=== PATIENT | male | born 1995 | race Caucasian/White ===

== ENCOUNTER 2018-05-02 16:12 | Emergency (ER) | payer BC ==
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
[2018-05-02 16:29] VITALS: BP 115/67; PULSE 57; TEMP 98.1; BMI 21.4
[2018-05-02] MEDS ORDERED: IBUPROFEN 600 MG TABLET (FP) PO ONE ×2 (17:06→17:07)
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
== END 2018-05-02 17:23 | disposition home or self-care (01) ==
LOC: JERFT 16:12
DX: Z04.1 Encounter for examination and observation following transport accident (principal); V43.52XA Car driver injured in collision with other type car in traffic accident, initial encounter; Y93.89 Activity, other specified; Y92.412 Parkway as the place of occurrence of the external cause
CPT/HCPCS: 99281-25

== ENCOUNTER 2023-02-17 14:56 | Emergency (ER) | payer BC ==
[2023-02-17 15:19] VITALS: BMI 22.9
[2023-02-17] MEDS ORDERED: KETOROLAC TROMETHAMINE 30 MG/1 ML VIAL IM ONE (16:01)
[2023-02-17] MEDS ORDERED: KETOROLAC TROMETHAMINE 30 MG/1 ML VIAL ONE (16:10)
[2023-02-17] MEDS ORDERED: ACETAMINOPHEN 1000 MG/100 ML BAG IVPB ONE (17:30)
[2023-02-17] MEDS ORDERED: ACETAMINOPHEN INJECTION 100 ML IVPB ONE (17:31)
[2023-02-17 18:07] LABS: BASO % 0.1 % (0-2.0); HEMATOCRIT 40.5 % (35.4-49); HEMOGLOBIN 13.8 GM/dL (11.7-16.9); LYMPH % 20.3 % (8-40); MCH 29.9 pg (25.7-33.7); MCHC 34.1 g/dl (32.0-35.9); MEAN CELL VOLUME 87.8 fl (80-96); MEAN PLT VOLUME 9.2 fl (7.5-11.1); MONO % 7.8 % (3.8-10.2); NEUT % 71.8 % (42.8-82.8); PLATELET COUNT 201 10^3/uL (134-434); RBC 4.62 M/mm3 (4.00-5.60); RDW 12.6 % (11.9-15.9); WHITE BLOOD COUNT 9.7 K/mm3 (4.0-10.0)
[2023-02-17 18:23] LABS: CALCIUM 8.9 mg/dL (8.5-10.1)
[2023-02-17 18:24] LABS: ALBUMIN 3.9 g/dl (3.4-5.0); BLOOD UREA NITROGEN 12.1 mg/dL (7-18)
[2023-02-17 18:27] LABS: CREATININE 0.9 mg/dL (0.55-1.3)
[2023-02-17 18:28] LABS: BILIRUBIN,TOTAL 0.4 mg/dL (0.2-1)
[2023-02-17 18:31] VITALS: BP 133/74; PULSE 68; RESP 17; TEMP 98.5
== END 2023-02-17 19:02 | disposition home or self-care (01) ==
LOC: JER 14:56
PROC: 2W3QX1Z Immobilization of Right Lower Leg using Splint (ICD-10-PCS; principal; 2023-02-17)
PROC: 3E033NZ Introduction of Analgesics, Hypnotics, Sedatives into Peripheral Vein, Percutaneous Approach (ICD-10-PCS; 2023-02-17)
PROC: 3E0233Z Introduction of Anti-inflammatory into Muscle, Percutaneous Approach (ICD-10-PCS; 2023-02-17)
DX: S82.201A Unspecified fracture of shaft of right tibia, initial encounter for closed fracture (principal); R55 Syncope and collapse; Y99.9 Unspecified external cause status
CPT/HCPCS: 36415; 71046-TC-FY; 73610-TC-RT-FY; 73630-TC-RT-FY; 80053; 84439; 84443; 84484; 85025; 93005; 93010; 99285-25

== ENCOUNTER 2023-02-27 04:31 | Day surgery (SDC) | payer BC ==
[2023-02-22 17:08] VITALS: BMI 22.9
[2023-02-27] MEDS ORDERED: MIDAZOLAM HCL 2 MG/2 ML SINGLE DOSE VIAL ONE (12:58)
[2023-02-27] MEDS ORDERED: BUPIVACAINE HCL/PF 0.5% (5MG/ML) 10 ML VIAL ONE (12:59)
[2023-02-27] MEDS ORDERED: DEXAMETHASONE SOD PHOSPHATE 10 MG/1 ML VIAL ONE (12:59)
[2023-02-27] MEDS ORDERED: PROPOFOL 60 ML ONE (13:30)
[2023-02-27] MEDS ORDERED: ceFAZolin SODIUM 1 GM VIAL ONE ×2 (14:12)
[2023-02-27] MEDS ORDERED: ceFAZolin SODIUM 1 GM VIAL IVPB ONE (14:14)
[2023-02-27] MEDS ORDERED: KETOROLAC TROMETHAMINE 30 MG/1 ML VIAL ONE (14:27)
[2023-02-27] MEDS ORDERED: ONDANSETRON 4 MG/2 ML VIAL ONE ×2 (14:27→16:39)
[2023-02-27] MEDS ORDERED: DEXAMETHASONE SOD PHOSPHATE 4 MG/1 ML VIAL ONE (14:27)
[2023-02-27] MEDS ORDERED: PROPOFOL 20 ML ONE ×2 (14:35→15:58)
[2023-02-27] MEDS ORDERED: oxyCODONE HCL 5 MG TABLET PO PRN (16:43)
[2023-02-27] MEDS ORDERED: ONDANSETRON 4 MG/2 ML VIAL IVPUSH PRN (16:43)
[2023-02-27] MEDS ORDERED: ACETAMINOPHEN 325 MG TABLET (FP) PO PRN (16:43)
[2023-02-27] MEDS ORDERED: LACTATED RINGERS SOLUTION 1,000 ML IV SCH (16:45)
[2023-02-27 18:43] VITALS: RESP 18
[2023-02-27 20:16] VITALS: BP 120/60; PULSE 70; TEMP 97.3
== END 2023-02-27 20:39 | disposition home or self-care (01) ==
LOC: JASU-SURG 04:31
PROVIDERS: ATTEND Orthopaedic Surgery
PROC: 0QSJ04Z Reposition Right Fibula with Internal Fixation Device, Open Approach (ICD-10-PCS; principal; 2023-02-27 13:30)
DX: S82.831A Other fracture of upper and lower end of right fibula, initial encounter for closed fracture (principal); S93.431A Sprain of tibiofibular ligament of right ankle, initial encounter; X58.XXXA Exposure to other specified factors, initial encounter; Y93.9 Activity, unspecified; Y92.9 Unspecified place or not applicable
CPT/HCPCS: 27792; 27829; C1713; 76000-TC-FY; 94760; J1100